=== PATIENT | female | born 1975 | race Caucasian/White ===

== ENCOUNTER 2020-06-05 02:07 | Emergency (ER) | payer BC ==
[~2020-06-05] VITALS: Ht 170.2 cm; Wt 81.0 kg
--- NOTE | 2020-06-05 03:31 | NUR ---
PT AWAITING ER PROVIDER. PAIGE DENT IN HER ROOM AT EDGE OF BED .
[2020-06-05 04:22] LABS: URINE HCG NEGATIVE (NEG)
[2020-06-05 04:27] LABS: CLARITY,URINE SLIGHTLY CLOUDY (Clear); COLOR,URINE YELLOW (Yellow); GLUCOSE, URINE NEGATIVE (Neg); KETONES,URINE NEGATIVE (Neg); LEUKOCYTE ESTERASE ,URINE NEGATIVE (Neg); NITRITES, URINE NEGATIVE (Neg); OCCULT BLOOD,URINE NEGATIVE (Neg); PROTEIN,URINE NEGATIVE (Neg); UROBILINOGEN,URINE 0.2 E.U/dL (0.2-1.0)
[2020-06-05 04:35] LABS: UA COLLECTION TYPE CLN CATCH MIDSTREAM
--- NOTE | 2020-06-05 04:38 | NUR ---
[facility] AWAITING US FOR TRANS VAGINAL US.
[2020-06-05 04:50] LABS: BACTERIA,URINE 1+ /HPF (Neg); MUCUS STRANDS MANY /LPF (Neg); RBC,URINE NONE SEEN /HPF (0-2); SQUAMOUS EPITHELIAL CELL,UR MANY /LPF (FEW); WBC,URINE 0-4 /HPF (0-4)
[2020-06-05 05:28] VITALS: BP 109/83
== END 2020-06-05 05:30 | disposition home or self-care (01) ==
LOC: ER 02:08
DX: R10.31 Right lower quadrant pain (principal); R25.2 Cramp and spasm
CPT/HCPCS: 73502; 76830; 76856; 81001; 81025; 93976; 99285